=== PATIENT | female | born 1950 | race Caucasian/White ===

== ENCOUNTER → 2017-03-29 | Outpatient (CLI) | payer MEDICARE, OTHER ==
[~2017-03-29] MED LIST: CALTRATE-600 W600 MG PO; COLACE-DPS100 MG PO; DAILY MULTIPLE1 EAC1 PO; EFFEXOR XR75 MG PO; FISH OIL 500 M1 EAC2 PO; INDOCIN DPS PO; LIPITOR DPS20 MG PO; MOBIC15 MG PO; NEXIUM40 MG PO; OXYBUTYNIN CHLOR5 M1 PO; PERCOCET 5-3251 EACH PO; TYLENOL DPS325 MG OP; VALIUM5 MG PO; VITAMIN B122500 MCG PO; VITAMIN D31000 UNIT PO
== END | disposition home or self-care (01) ==
LOC: RAD.S 08:46
DX: R13.10 Dysphagia, unspecified (principal); K21.9 Gastro-esophageal reflux disease without esophagitis; K44.9 Diaphragmatic hernia without obstruction or gangrene; K22.4 Dyskinesia of esophagus